=== PATIENT | female | born 2000 | race Caucasian/White ===

== ENCOUNTER → 2019-06-26 | Outpatient (REF) | payer BC | LOC: M LAB REF 16:39 | PROVIDERS: ATTEND Physician Assistant | DX: R30.0 Dysuria (principal) ==

== ENCOUNTER → 2019-08-13 | Outpatient (REF) | payer BC | LOC: M LAB REF 12:36 | PROVIDERS: ATTEND Physician Assistant | DX: J02.9 Acute pharyngitis, unspecified (principal) ==

== ENCOUNTER → 2022-12-25 | Outpatient (CLI) | payer OTHER, BC | LOC: M PLAIMG 11:20 | PROVIDERS: ATTEND Orthopaedic Surgery | DX: M25.562 Pain in left knee (principal) ==

== ENCOUNTER → 2023-05-06 | Outpatient (REF) | payer OTHER, BC ==
[2023-05-07 12:34] LABS: CHLAMYDIA DNA AMPLIFICATION NEGATIVE (NEGATIVE); GC DNA AMPLIFICATION NEGATIVE (NEGATIVE)
== END ==
LOC: M LAB REF 10:08
PROVIDERS: ATTEND Physician Assistant
DX: N30.00 Acute cystitis without hematuria (principal)

== ENCOUNTER → 2025-06-10 | Outpatient (REF) | payer OTHER | LOC: M LAB REF 18:12 | PROVIDERS: ATTEND Student in an Organized Health Care Education/Training Program | DX: R30.0 Dysuria (principal) ==

== ENCOUNTER → 2025-06-11 | Outpatient (CLI) | payer OTHER ==
[2025-06-11 18:13] LABS: BASO # 0.1 10^3/uL (0.0-0.2); BASO % 0.5 % (0.0-1.0); EOS # 0.1 10^3/uL (0.0-0.5); EOS % 1.0 % (0.0-3.0); LYMPH # 3.3 10^3/uL (1.5-5.0); LYMPH % 29.7 % (24.0-44.0); MONO # 0.7 10^3/uL (0.0-0.8); MONO % 6.1 % (2.0-8.0); NEUTROPHILS # 6.9 10^3/uL (1.5-8.5); NEUTROPHILS % 62.5 % (36.0-66.0); PLATELET COUNT, AUTOMATED 343 10^3/uL (150-450)
[2025-06-11 18:39] LABS: CHOLESTEROL LEVEL 338.0 MG/DL (<200); CHOLESTEROL RISK RATIO 4.72 (<5); IRON (FE) 35.0 UG/DL (50-170); LDL CHOLESTEROL 247.4 MG/DL (<100); NON-HDL-C 266.4 MG/DL; PERCENT SATURATION 9.4 % (13.2-45.0); TRIGLYCERIDES LEVEL 95.0 MG/DL (<150)
== END ==
LOC: M LAB 17:20 → MERGE 17:20
PROVIDERS: ATTEND Nurse Practitioner
DX: D50.9 Iron deficiency anemia, unspecified (principal); E66.9 Obesity, unspecified

== ENCOUNTER → 2025-06-14 | Outpatient (CLI) | payer OTHER | LOC: M PLARAD 08:33 | PROVIDERS: ATTEND Orthopaedic Surgery | DX: M25.562 Pain in left knee (principal); M22.42 Chondromalacia patellae, left knee; M25.462 Effusion, left knee ==